=== PATIENT | male | born 1970 | race Caucasian/White ===

== ENCOUNTER 2023-01-20 03:19 | Observation (INO) | payer SELFPAY ==
[2023-01-20] MEDS ORDERED: Ondansetron PF 4 MG/2 ML Vial ONE (03:54)
[2023-01-20] MEDS ORDERED: LORazepam 2 MG/ML SYR.(CARPUJECT) ONE (03:54)
[2023-01-20 04:01] LABS: Red Blood Cell (RBC) Count 4.91 mill/uL (4.70-6.10); White Blood Cell (WBC) Count 16.4 10x3/uL (4.8-10.8)
[2023-01-20 04:02] LABS: #Basophils 0.1 thou/uL (0.0-0.2); #Monocytes 0.7 thou/uL (0.11-0.59); #Neutrophils 13.9 thou/uL (1.40-6.50); %Basophils 0.4 % (0.0-1.0); %Eosinophils 0.1 % (0.0-10.0); %Monocytes 4.4 % (0.0-10.0); %Neutrophils 84.7 % (42.0-75.0); Hemoglobin 16.1 g/dL (14.0-18.0); Mean Corpuscular HGB CONC 36.8 g/dL (32.0-36.0); Mean Corpuscular Hemoglobin 32.8 pg (27.0-31.0); Mean Corpuscular Volume 89.2 fl (78.0-98.0); Mean Platelet Volume 8.9 fL (7.4-10.4); Platelet Count 301 10x3/uL (130-400); RBC Distribution Width 12.4 % (11.5-14.5)
[2023-01-20 04:26] LABS: ALT (SGPT) 15 U/L (8-55); AST (SGOT) 23 U/L (5-34); Albumin 4.5 g/dL (3.5-5.0); Alkaline Phosphatase 86 U/L (40-110); Anion Gap 24 mmol/L (10-20); BUN (Urea Nitrogen) 6 mg/dL (8.4-25.7); Bilirubin, Total 0.8 mg/dL (0.2-1.2); Calc. Creatinine Clearance 0 mL/min (70-130); Calcium 9.2 mg/dL (7.8-10.44); Carbon Dioxide 23 mmol/L (22-29); Chloride 91 mmol/L (98-107); Estimated GFR 85; Globulin 3.2 g/dL (2.4-3.5); Glucose 159 mg/dL (70-105); Magnesium 1.6 mg/dL (1.6-2.6); Protein, Total 7.7 g/dL (6.0-8.3); Sodium 135 mmol/L (136-145)
[2023-01-20] MEDS ORDERED: Potassium Chloride 20 MEQ TAB ONE ×2 (04:48→08:58)
[2023-01-20] MEDS ORDERED: Magnesium 2 GM/50 ML BAG (IN WATER) ONE ×2 (04:48→08:58)
[2023-01-20 05:27] LABS: Actual Bicarbonate (HCO3v) 26.6 mEq/L (22-28); Base Excess 2.6 mEq/L (-2.0 to +3.0); Calcium, Ionized (venous) 0.98 mmol/L (1.16-1.32); Chloride (VBG) 95 mmol/L (98-106); Hematocrit-VBG 46 % (42.0-52.0); Hemoglobin (Hb) 15.7 g/dL (13.1-17.2); Potassium (VBG) 3.14 mmol/L (3.70-5.30)
[2023-01-20] MEDS ORDERED: Thiamine HCl 200 MG/2 ML VIAL SLOW IVP SCH (05:45)
[2023-01-20] MEDS ORDERED: Lorazepam 1 MG TAB PO PRN (07:20)
[2023-01-20] MEDS ORDERED: Lorazepam 2 MG/ML VIAL IM PRN (07:20)
[2023-01-20] MEDS ORDERED: Ondansetron ODT 4 MG TAB PO PRN ×2 (07:20→07:23)
[2023-01-20] MEDS ORDERED: Ondansetron PF 4 MG/2 ML Vial IVP PRN (07:23)
[2023-01-20] MEDS ORDERED: Acetaminophen 325 MG TAB PO PRN (07:23)
[2023-01-20] MEDS ORDERED: Electrolyte Replacement Protocol 1 EACH FS SCH (07:30)
[2023-01-20] MEDS ORDERED: Electrolyte Replacement Protocol FS PRN (07:45)
[2023-01-20] MEDS ORDERED: Magnesium 2 GM/50 ML(in water) 2 GM in Premix Bag 1 BAG IVPB SCH (08:00)
[2023-01-20] MEDS ORDERED: Potassium Chloride 20 MEQ TAB PO SCH (08:00)
[2023-01-20 08:04] LABS: Phosphorus 3.2 mg/dL (2.3-4.7)
[2023-01-20] MEDS: Multivit, Therapeutic 1 TAB PO SCH (08:57)
[2023-01-20] MEDS: Folic Acid 1 MG TAB PO SCH (08:57)
[2023-01-20] MEDS ORDERED: Folic Acid 1 MG TAB ONE (08:58)
[2023-01-20 09:10] VITALS: BMI 26.6
[2023-01-20 11:01] LABS: Syphilis Antibody Nonreactive (Nonreactive); Syphilis Antibody Index 0.23 S/CO (<1.00 Non-Reactive)
[2023-01-20 12:10] LABS: Amphetamine Not Detected (NotDetected); Barbiturates Screen Not Detected (NotDetected); Benzodiazepine Screen Not Detected (NotDetected); Cocaine Metabolite Screen Not Detected (NotDetected); Methadone Not Detected (NotDetected); Methamphetamine Not Detected (NotDetected); Opiate Screen Not Detected (NotDetected); Oxycodone Screen Not Detected (NotDetected); Phencyclidine (PCP) Not Detected (NotDetected); THC/Cannabinoid Screen Detected (NotDetected); Tricyclic Screen Not Detected (NotDetected)
[2023-01-21 05:08] LABS: #Basophils 0.1 thou/uL (0.0-0.2); #Eosinphils 0.1 thou/uL (0.0-0.7); #Monocytes 0.9 thou/uL (0.11-0.59); #Neutrophils 5.5 thou/uL (1.40-6.50); %Basophils 0.9 % (0.0-1.0); %Eosinophils 0.9 % (0.0-10.0); %Lymphocytes 23.5 % (21.0-51.0); %Monocytes 10.3 % (0.0-10.0); %Neutrophils 64.1 % (42.0-75.0); Hemoglobin 14.8 g/dL (14.0-18.0); Platelet Count 240 10x3/uL (130-400); RBC Distribution Width 13.1 % (11.5-14.5); Red Blood Cell (RBC) Count 4.63 mill/uL (4.70-6.10); White Blood Cell (WBC) Count 8.6 10x3/uL (4.8-10.8)
[2023-01-21 05:30] LABS: Anion Gap 13 mmol/L (10-20); BUN (Urea Nitrogen) 10 mg/dL (8.4-25.7); Calc. Creatinine Clearance 90 mL/min (70-130); Calcium 8.9 mg/dL (7.8-10.44); Carbon Dioxide 27 mmol/L (22-29); Chloride 104 mmol/L (98-107); Estimated GFR 79; Glucose 103 mg/dL (70-105); Potassium 4.3 mmol/L (3.5-5.1); Sodium 140 mmol/L (136-145)
[2023-01-21] MEDS ORDERED: Lorazepam 1 MG TAB PO PRN (07:21)
[2023-01-21 08:17] VITALS: BP 112/80; TEMP 98
[2023-01-21] MEDS: Multivit, Therapeutic 1 TAB PO SCH (09:50)
[2023-01-21] MEDS: Folic Acid 1 MG TAB PO SCH (09:50)
[2023-01-21] MEDS: Propranolol 10 MG TAB PO SCH ×2 (09:51→10:49)
[2023-01-22] MEDS ORDERED: Lorazepam 1 MG TAB PO PRN (07:21)
[2023-01-23] MEDS ORDERED: Lorazepam 0.5 MG TAB PO PRN (07:21)
[2023-01-23] MEDS ORDERED: Thiamine 100 MG TAB PO SCH (09:00)
== END 2023-01-21 11:12 | disposition home or self-care (01) ==
LOC: ERS 03:19 → SUATTDRO 03:19 → ERHOLD 06:47 → 2SW 12:34
PROVIDERS: ADMIT Student in an Organized Health Care Education/Training Program; ATTEND Family Medicine
DX: F41.0 Panic disorder [episodic paroxysmal anxiety] (principal); R00.0 Tachycardia, unspecified; E86.9 Volume depletion, unspecified; F10.10 Alcohol abuse, uncomplicated; E87.6 Hypokalemia; E03.9 Hypothyroidism, unspecified; Z79.890 Hormone replacement therapy
CPT/HCPCS: 36415; 71045; 80048; 80053; 80306; 82805; 83735; 84100; 84443; 84484; 85025; 86780; 93005; 96361; 96365; 96367; 96375; 96376; G0378; J2060; J2405; J3411; J3475